=== PATIENT | female | born 1975 | race African-American/Black ===

== ENCOUNTER 2023-09-10 11:20 | Emergency (ER) | payer SELFPAY ==
[2023-09-10] MEDS ORDERED: Ketorolac Tromethamine 30 MG/ML VIAL ONE (12:13)
== END 2023-09-10 12:00 | disposition home or self-care (01) ==
LOC: CSHERS 11:20
DX: M17.11 Unilateral primary osteoarthritis, right knee (principal)
CPT/HCPCS: 96372; J1885